=== PATIENT | male | born 1995 | race Hispanic/Latino ===

== ENCOUNTER 2021-06-19 20:02 | Emergency (ER) | payer OTHER ==
[~2021-06-19] VITALS: Ht 172.7 cm; Wt 68.0 kg
[2021-06-19 20:05] VITALS: BP 137/84
[2021-06-19] MEDS ORDERED: ACETAMINOPHEN WITH CODEINE 1 TAB TAB PO ONE (22:30)
[2021-06-19] MEDS ORDERED: AMOX/CLAV 875/125MG TAB PO ONE (22:30)
[2021-06-19] MEDS ORDERED: ACET-2247 PO (22:35)
[2021-06-19] MEDS ORDERED: AMOX-429 PO (22:35)
[2021-06-19 22:38] VITALS: BP 132/86
== END 2021-06-19 22:45 | disposition home or self-care (01) ==
LOC: EDH 20:02
DX: K03.81 Cracked tooth (principal); R51.9 Headache, unspecified